=== PATIENT | male | born 1940 | race Caucasian/White ===

== ENCOUNTER 2023-03-07 06:11 | Day surgery (SDC) | payer OTHER ==
[~2023-03-07] VITALS: Ht 177.8 cm; Wt 71.7 kg
[~2023-03-07 06:11] MED LIST: BIMA0.01 OP; CHOL200031 PO; CINN500C7 PO; MISC1TAB PO; MULT-688 PO; NUTRCAP OR; TIMO0.5S32 OP; TURMPOW PO; [UNRECOGNIZED DRUG - CODE] PO
[2023-03-07] MEDS ORDERED: LIDOCAINE 2% JELLY 11ml (GLYDO) ONE (07:25)
[2023-03-07] MEDS ORDERED: CIPROFLOXACIN 400MG/200ML 200 ML IV ONE (07:29)
[2023-03-07] MEDS ORDERED: GLYCOPYRROLATE 0.2 MG/ML 1ML VIAL ONE (07:40)
[2023-03-07] MEDS ORDERED: fentaNYL CITRATE 100 MCG/2 ML VL ONE (07:40)
[2023-03-07] MEDS ORDERED: PROPOFOL 10 MG/ML 20 ML IV ONE (07:40)
[2023-03-07] MEDS ORDERED: DexAMETHasone SOD PHOS 10MG/1ML VIAL INJ ONE (07:40)
[2023-03-07] MEDS ORDERED: ONDANSETRON HCL 4 MG/2 ML VIAL ONE (07:40)
[2023-03-07] MEDS ORDERED: KETOROLAC TROMETH 30 MG/ML 1ML VIAL ONE (07:40)
[2023-03-07] MEDS ORDERED: LIDOCAINE 2% (LOCAL ANESTH.) PF 5ml SDV ONE (07:40)
[2023-03-07] MEDS ORDERED: ePHEDrine SULFATE 50 MG/ML AMP ONE (07:48)
[2023-03-07 08:23] VITALS: TEMP 97.7; O2SAT 99
[2023-03-07] MEDS ORDERED: HYDROmorphone HCL 2 MG/ML VL/or syr IV PRN (08:30)
[2023-03-07] MEDS ORDERED: LABETALOL HCL 5 MG/ML 4ML SYRINGE IV PRN (08:30)
[2023-03-07] MEDS ORDERED: ePHEDrine SULFATE 50 MG/ML AMP IV PRN (08:30)
[2023-03-07] MEDS ORDERED: NALOXONE HCL 0.4 MG/ML VIAL IV PRN (08:30)
[2023-03-07] MEDS ORDERED: hydrALAZINE HCL 20 MG/ML VL IV PRN (08:30)
[2023-03-07] MEDS ORDERED: fentaNYL CITRATE 100 MCG/2 ML VL IV PRN (08:30)
[2023-03-07] MEDS ORDERED: FLUMAZENIL 0.1 MG/ML INJ 10ML MDV IV PRN (08:30)
[2023-03-07] MEDS ORDERED: ONDANSETRON HCL 4 MG/2 ML VIAL IV PRN (08:30)
[2023-03-07 09:20] VITALS: BP 117/60; PULSE 54; RESP 11; O2SAT 98
== END 2023-03-07 09:25 | disposition home or self-care (01) ==
LOC: SUR 06:11
PROVIDERS: ATTEND Urology
DX: R97.20 Elevated prostate specific antigen [PSA] (principal); N40.1 Benign prostatic hyperplasia with lower urinary tract symptoms; R39.11 Hesitancy of micturition
CPT/HCPCS: 55700; C1769; J0744; J1100; J1885; J2001; J2405; J2704; J3010; J7030

== ENCOUNTER 2023-04-02 13:43 | Inpatient (IN) | payer OTHER ==
[~2023-04-02] VITALS: Ht 177.8 cm; Wt 72.3 kg
[2023-04-02 14:55] LABS: Basophils # (auto) 0 10 ^3/uL (0-0.2); Basophils % (auto) 0.2 % (0.0-2.0); Eosinophils # (auto) 0 10 ^3/uL (0-0.8); Hematocrit 43.8 % (41.0-53.0); Hemoglobin 14.6 g/dL (13.5-17.5); Lymphocytes # (auto) 1.4 10 ^3/uL (0.4-5.4); Lymphocytes % (auto) 7.7 % (10.0-50.0); Mean Corpuscular Hemoglobin 29.9 pg (28.0-32.0); Mean Corpuscular Hgb Conc. 33.2 g/dL (32.0-36.0); Mean Corpuscular Volume 90.1 fL (80.0-100.0); Monocytes % (auto) 11.1 % (0.0-12.0); Neutrophils # (auto) 14.9 10 ^3/uL (1.6-8.6); Red Blood Cells 4.86 10^6/uL (4.5-5.90); White Blood Cell 18.4 10^3/uL (4.4-10.8)
[2023-04-02] MEDS ORDERED: SODIUM CHLORIDE 0.9% 1,000 ML IV ONE ×2 (15:00)
[2023-04-02 15:16] VITALS: PULSE 122; RESP 19; O2SAT 94
[2023-04-02 15:27] LABS: Alanine Aminotransferase 20 U/L (7-40); Albumin 4.1 g/dL (3.2-4.8); Alkaline Phosphatase 117 U/L (46-116); Anion Gap 8 (5-15); Aspartate Aminotransferase 18 U/L (13-40); BUN/Creatinine Ratio 17.3 (10.0-20.0); Bilirubin, Total 0.8 mg/dL (0.2-1.0); Blood Urea Nitrogen 19 mg/dL (9-23); Carbon Dioxide 26 mmol/L (20-30); Chloride 103 mmol/L (98-107); Glucose 173 mg/dL (74-106); Potassium 4.1 mmol/L (3.5-5.1); Sodium 137 mmol/L (136-145); Total Protein 7.3 g/dL (5.7-8.2)
[2023-04-02 16:17] LABS: INR 1.26 (0.9-1.15); Partial Thromboplastin Time 33.6 SEC (24.5-34.5)
[2023-04-02] MEDS ORDERED: dilTIAZem 25 MG/5 ML VIAL IV ONE (16:30)
[2023-04-02] MEDS ORDERED: cefTRIAXone 1GM/50ML D5W 50 ML IV ONE (16:45)
[2023-04-02] MEDS ORDERED: CLINDAMYCIN 600MG IV 50 ML IV ONE (16:45)
[2023-04-02 17:56] LABS: Lactic Acid w/Reflex 2.1 mmol/L (0.4-2.0)
[2023-04-02 19:37] LABS: Urine Bacteria MOD /hpf (None Seen); Urine Blood Negative /uL (Negative); Urine Clarity HAZY (Clear); Urine Color Yellow (Yellow); Urine Mucus FEW (None Seen); Urine Protein, UAD 1+ (Negative); Urine Specific Gravity 1.026 (1.001-1.035); Urine WBC 136 /hpf (0 - 3); Urine pH 5.5 (5.0-8.0)
[2023-04-02] MEDS ORDERED: MORPHINE SULFATE INJ 2 MG/ml SYRG IV PRN (20:30)
[2023-04-02] MEDS ORDERED: ONDANSETRON HCL 4 MG/2 ML VIAL IV PRN (20:30)
[2023-04-02] MEDS ORDERED: hydrALAZINE HCL 10 MG TAB PO PRN (20:30)
[2023-04-02] MEDS ORDERED: VANCOMYCIN PER PHARMACY 0 MG IV SCH (20:30)
[2023-04-02] MEDS ORDERED: HYDROcodone-ACET 5/325MG TAB PO PRN (20:30)
[2023-04-02] MEDS ORDERED: PIPERACILLIN-TAZOB 3.375GM 100 ML IV ONE (22:00)
[2023-04-02] MEDS ORDERED: VANCOMYCIN 1GM/250ML 250 ML IV ONE (22:15)
[2023-04-02 23:08] VITALS: PULSE 84; RESP 20; O2SAT 94
[2023-04-02 23:30] VITALS: BP 99/58; PULSE 83; RESP 20; TEMP 100.6; O2SAT 94
[2023-04-02] MEDS: ENOXAPARIN SOD 40 MG/0.4 ML SYRINGE SC SCH (23:36)
[2023-04-02] MEDS: ACETAMINOPHEN 325 MG TAB PO PRN (23:54)
[2023-04-03] VITALS (8 sets, daily range): BP systolic 86–98; BP diastolic 47–55; PULSE 62–86; RESP 18–20; TEMP 98.2–100.4; O2SAT 92–96
[2023-04-03] MEDS: PIPERACILLIN-TAZOB 3.375GM 100 ML IV SCH ×3 (05:41→21:05)
[2023-04-03 07:16] LABS: Basophils # (auto) 0.1 10 ^3/uL (0-0.2); Basophils % (auto) 0.2 % (0.0-2.0); Eosinophils # (auto) 0 10 ^3/uL (0-0.8); Eosinophils % (auto) 0.1 % (0.0-7.0); Hematocrit 35.3 % (41.0-53.0); Hemoglobin 11.4 g/dL (13.5-17.5); Lymphocytes # (auto) 1.5 10 ^3/uL (0.4-5.4); Lymphocytes % (auto) 6.3 % (10.0-50.0); Mean Corpuscular Hemoglobin 29.2 pg (28.0-32.0); Mean Corpuscular Hgb Conc. 32.4 g/dL (32.0-36.0); Mean Corpuscular Volume 90.2 fL (80.0-100.0); Monocytes # (auto) 2.5 10 ^3/uL (0-1.3); Monocytes % (auto) 10.6 % (0.0-12.0); Neutrophils # (auto) 19.8 10 ^3/uL (1.6-8.6); Neutrophils % (auto) 82.8 % (37.0-80.0); Red Blood Cells 3.92 10^6/uL (4.5-5.90); Red Cell Distribution Width 13.9 % (11.8-14.3)
[2023-04-03] MEDS: ACETAMINOPHEN 325 MG TAB PO PRN (08:01)
[2023-04-03] MEDS: ENOXAPARIN SOD 40 MG/0.4 ML SYRINGE SC SCH (10:25)
[2023-04-03] MEDS: BIMATOPROST 0.01% OP SCH (21:14)
[2023-04-03] MEDS: VANCOMYCIN 1GM/250ML 250 ML IV SCH (23:30)
[2023-04-04] VITALS (7 sets, daily range): BP systolic 89–102; BP diastolic 46–58; PULSE 70–79; RESP 18–19; TEMP 36.8; O2SAT 91–96
[2023-04-04] MEDS: PIPERACILLIN-TAZOB 3.375GM 100 ML IV SCH ×3 (06:12→22:09)
[2023-04-04 06:13] LABS: Basophils # (auto) 0 10 ^3/uL (0-0.2); Basophils % (auto) 0.1 % (0.0-2.0); Eosinophils # (auto) 0 10 ^3/uL (0-0.8); Eosinophils % (auto) 0.1 % (0.0-7.0); Hematocrit 33.3 % (41.0-53.0); Hemoglobin 10.8 g/dL (13.5-17.5); Lymphocytes # (auto) 1.2 10 ^3/uL (0.4-5.4); Mean Corpuscular Hemoglobin 29.3 pg (28.0-32.0); Mean Corpuscular Hgb Conc. 32.4 g/dL (32.0-36.0); Mean Corpuscular Volume 90.3 fL (80.0-100.0); Monocytes # (auto) 1.8 10 ^3/uL (0-1.3); Monocytes % (auto) 8.9 % (0.0-12.0); Neutrophils # (auto) 17.4 10 ^3/uL (1.6-8.6); Neutrophils % (auto) 84.9 % (37.0-80.0); Red Blood Cells 3.69 10^6/uL (4.5-5.90); White Blood Cell 20.5 10^3/uL (4.4-10.8)
[2023-04-04] MEDS: VANCOMYCIN 1GM/250ML 250 ML IV SCH (10:38)
[2023-04-04] MEDS: ENOXAPARIN SOD 40 MG/0.4 ML SYRINGE SC SCH (10:38)
[2023-04-04] MEDS: TIMOLOL MAL 0.5% OPTH(EYE) SOL 5ML OP SCH (10:39)
[2023-04-04] MEDS: SODIUM CHLORIDE 0.9% 1,000 ML IV SCH ×2 (14:30→22:33)
[2023-04-04] MEDS ORDERED: SODIUM CHLORIDE 0.9% 1,000 ML IV ONE (14:30)
[2023-04-04] MEDS: BIMATOPROST 0.01% OP SCH (22:00)
[2023-04-05 05:00] VITALS: BP 96/54; PULSE 61; RESP 18; TEMP 99; O2SAT 90
[2023-04-05] MEDS: PIPERACILLIN-TAZOB 3.375GM 100 ML IV SCH (05:59)
[2023-04-05] MEDS: SODIUM CHLORIDE 0.9% 1,000 ML IV SCH ×2 (06:30→13:51)
[2023-04-05 08:00] VITALS: BP 106/57; PULSE 62; PULSE 69; RESP 18; TEMP 98.3; O2SAT 93
[2023-04-05 09:22] LABS: Basophils # (auto) 0 10 ^3/uL (0-0.2); Basophils % (auto) 0.2 % (0.0-2.0); Eosinophils # (auto) 0.1 10 ^3/uL (0-0.8); Eosinophils % (auto) 0.8 % (0.0-7.0); Hematocrit 34.4 % (41.0-53.0); Hemoglobin 11.3 g/dL (13.5-17.5); Lymphocytes # (auto) 0.9 10 ^3/uL (0.4-5.4); Lymphocytes % (auto) 5.2 % (10.0-50.0); Mean Corpuscular Hemoglobin 29.3 pg (28.0-32.0); Mean Corpuscular Hgb Conc. 32.8 g/dL (32.0-36.0); Mean Corpuscular Volume 89.6 fL (80.0-100.0); Monocytes # (auto) 1.1 10 ^3/uL (0-1.3); Monocytes % (auto) 6.7 % (0.0-12.0); Neutrophils # (auto) 14.3 10 ^3/uL (1.6-8.6); Neutrophils % (auto) 87.1 % (37.0-80.0); Red Blood Cells 3.84 10^6/uL (4.5-5.90); Red Cell Distribution Width 13.8 % (11.8-14.3); White Blood Cell 16.4 10^3/uL (4.4-10.8)
[2023-04-05 09:52] VITALS: BP 106/57; PULSE 69; RESP 18; TEMP 98.3; O2SAT 93
[2023-04-05] MEDS: TIMOLOL MAL 0.5% OPTH(EYE) SOL 5ML OP SCH ×2 (10:00→10:29)
[2023-04-05] MEDS: VANCOMYCIN 1GM/250ML 250 ML IV SCH (10:28)
[2023-04-05] MEDS: ENOXAPARIN SOD 40 MG/0.4 ML SYRINGE SC SCH (10:29)
[2023-04-05] MEDS ORDERED: levoFLOXacin 500MG 100 ML IV ONE (12:30)
[2023-04-05 12:57] VITALS: BP 113/60; PULSE 68; RESP 19; TEMP 98.9; O2SAT 95
[2023-04-05] MEDS ORDERED: LEVO500T91 PO (13:34)
[2023-04-05] MEDS ORDERED: ASPI81TA10 PO (13:34)
[2023-04-05 15:34] VITALS: BP 123/60; PULSE 68; RESP 19; TEMP 98.9; O2SAT 95
[2023-04-06] MEDS ORDERED: levoFLOXacin 750MG 150 ML IV SCH (10:00)
== END 2023-04-05 15:53 | disposition home or self-care (01) | DRG 728 ==
LOC: ER 13:43 → TELE 20:46 → TELE-WESTW 23:00
PROVIDERS: ADMIT Nurse Practitioner Family; ATTEND Nurse Practitioner Family
DX: N45.3 Epididymo-orchitis (principal); N50.3 Cyst of epididymis; C61 Malignant neoplasm of prostate; D64.9 Anemia, unspecified; I34.0 Nonrheumatic mitral (valve) insufficiency; I86.1 Scrotal varices; I48.91 Unspecified atrial fibrillation; Z85.46 Personal history of malignant neoplasm of prostate
CPT/HCPCS: 36415; 76870; 80053; 81001; 82533; 83605; 84484; 85025; 85610; 85730; 87040; 87081; 87086; 93005; 93306; 97163; 99291; G0378; J0696; J1956; J2543; J3490